=== PATIENT | female | born 1990 | race Caucasian/White ===

== ENCOUNTER → 2024-10-24 | Day surgery (SDC) | payer BC, OTHER ==
[~2024-10-24] MED LIST: DEXMEDETOMIDINE HCL 200 MCG/2 ML VIAL ONE; GLUCAGON FOR INJ 1 MG VIAL ONE; HYOSCYAMINE SULFATE 0.5 MG/ML INJ ONE; LIDOCAINE HCL 2% LOCAL INJ 5 ML SDV VIAL INJ ONE; MAGNESIUM OXID400 MG PO; MIDAZOLAM HCL 2 MG/2 ML VIAL ONE; PROPOFOL IV EMULSION 50 ML IV ONE
[2024-10-24] MEDS: LACTATED RINGER'S 1,000 ML ONE (06:55)
[2024-10-24 08:30] VITALS: TEMP 98.6
[2024-10-24 09:00] VITALS: BP 111/83; PULSE 61; RESP 15; O2SAT 99
== END | disposition home or self-care (01) ==
LOC: OR 05:53
PROVIDERS: ATTEND Internal Medicine Gastroenterology
DX: K62.5 Hemorrhage of anus and rectum (principal); D12.2 Benign neoplasm of ascending colon; K57.30 Diverticulosis of large intestine without perforation or abscess without bleeding; K64.8 Other hemorrhoids; K21.9 Gastro-esophageal reflux disease without esophagitis; Z88.1 Allergy status to other antibiotic agents; Z91.013 Allergy to seafood
CPT/HCPCS: 45380; 45385; 81025; J1610; J1980; J2003; J2250; J2704; J7121; 45378